=== PATIENT | female | born 1955 | race Caucasian/White ===

== ENCOUNTER 2016-12-30 07:43 | Emergency (ER) | payer OTHER ==
[~2016-12-30] VITALS: Ht 157.5 cm; Wt 55.0 kg
[~2016-12-30 07:43] MED LIST: CIPR500T4 PO; DOCU-144 PO; HYDR-902 PO; HYDR-906 PO; IBUP-1542 PO; METR500T PO; ONDA4TAB8 PO
[2016-12-30 07:45] VITALS: Ht 157.5 cm; Wt 55.0 kg
[2016-12-30] MEDS ORDERED: ONDANSETRON 4 MG INJ IV STA (07:53)
[2016-12-30] MEDS ORDERED: SOD CHLORIDE 0.9% 500 ML IV STA (07:53)
[2016-12-30] MEDS ORDERED: morphine 2 MG INJ IV STA (07:53)
[2016-12-30 08:11] LABS: ADD SCAN DIFF NO
[2016-12-30 08:14] LABS: BASOPHILS % 0.3 % (0.0-2.0); EOSINOPHILS # 0.1 10^3/ul (0.0-0.5); EOSINOPHILS % 2.1 % (0.0-7.0); HEMATOCRIT 39.4 % (37.0-47.0); HEMOGLOBIN 13.4 g/dl (12.0-16.0); LYMPHOCYTES # 1.7 10^3/ul (0.8-2.9); LYMPHOCYTES % 50.9 % (15.0-51.0); MEAN CORPUSCULAR HEMOGLOBIN 29.5 pg (29.0-33.0); MEAN CORPUSCULAR VOLUME 86.6 fl (82.0-101.0); MEAN PLATELET VOLUME 12.6 fl (7.4-10.4); MONOCYTE # 0.4 10^3/ul (0.3-0.9); MONOCYTES % 13.1 % (0.0-11.0); NEUTROPHIL # 1.1 10^3/ul (1.6-7.5); NEUTROPHILS % 33.6 % (39.0-77.0); PLATELET COUNT 152 10^3/UL (140-415); RED BLOOD COUNT 4.55 10^6/ul (4.20-5.40); RED CELL DISTRIBUTION WIDTH 13.2 % (11.5-14.5); WHITE BLOOD COUNT 3.4 10^3/ul (4.8-10.8)
[2016-12-30 08:29] LABS: POTASSIUM 3.4 mmol/L (3.5-5.1)
[2016-12-30 08:31] LABS: ALBUMIN/GLOBULIN RATIO 1.17; BILIRUBIN,INDIRECT 0.7 mg/dl (0-1.1); BILIRUBIN,TOTAL 0.7 mg/dl (0.2-1.3); CREATININE 0.8 mg/dl (0.44-1.00); TOTAL PROTEIN 7.4 g/dl (6.1-8.1)
[2016-12-30 08:32] LABS: CALCIUM 8.6 mg/dl (8.4-10.2)
--- NOTE | 2016-12-30 08:47 | RADRPT ---
PROCEDURE: XR Abdomen 1 vw. CLINICAL INDICATION: Abdominal pain TECHNIQUE: AP view of the abdomen . COMPARISON: None. FINDINGS: No organomegaly is identified. There is a fecal filled colon. The bowel gas pattern is unremarkabl e. There is no evidence of bowel obstruction. No free air is identified. No calculi are identified . The axial skeleton is unremarkable. IMPRESSION: Fecal filled colon. RPTAT: [facility] .Des Gongora MD, MD Date Time Electronically viewed and signed by .Des Gongora MD, on 12/30/2016 08:46 .B/
[2016-12-30] MEDS ORDERED: ONDA4TAB14 PO (09:09)
[2016-12-30] MEDS ORDERED: DOCU-144 PO (09:09)
[2016-12-30] MEDS ORDERED: FLEETPED PR (09:09)
--- NOTE | 2016-12-30 09:12 | ERD ---
ER Documentation Chief Complaint Date/Time DATE: 12/30/16 TIME: 09:10 Chief Complaint ap with nausea since thursday,flatulance HPI This is a 61-year-old female with abdominal pain with nausea since Thursday she does complain of flatulence. She says had decreased problems of the 3 days. Abdominal pain is colicky nature diffuse in location with no exacerbating or alleviating factors. No fevers no chills. No sick contacts. No other current complaints. ROS All systems reviewed and are negative except as per history of present illness. Medications Home Meds Active Scripts Ondansetron (Ondansetron Odt) 4 Mg Tab.rapdis, 4 MG PO Q6H Y for NAUSEA AND/OR VOMITING, #10 TAB Prov:GINO CAZARES. 12/30/16 Sod Phosphate/Sod Biphosphate* (Fleet* Enema Pediatric) 66.6 Ml Soln, 66.6 ML NC DAILY Y for CONSTIPATION, #1 ENEMA Prov:GINO CAZARES 12/30/16 Docusate Sodium* (Colace*) 100 Mg Capsule, 100 MG PO TID, #30 CAP Prov:GINO CAZARES. 12/30/16 Docusate Sodium* (Colace*) 100 Mg Capsule, 100 MG PO TID, #30 CAP Prov:GARY MEIER MD 06/08/16 Hydrocodone/Acetaminophen (Rush 10-325 Tablet) 1 Each Tablet, 1 TAB PO Q6H Y for PAIN, #12 TAB Prov:GARY MEIER MD 06/08/16 Metronidazole* (Flagyl*) 500 Mg Tablet, 500 MG PO TID for 7 Days, TAB Prov:GARY MEIER MD 06/08/16 Ciprofloxacin Hcl* (Ciprofloxacin Hcl*) 500 Mg Tablet, 500 MG PO BID for 7 Days , TAB Prov:GARY MEIER MD 06/08/16 Ondansetron Hcl* (Zofran*) 4 Mg Tablet, 4 MG PO Q8H Y for NAUSEA AND/OR VOMITING , #30 TAB Prov:CHAD HOOKER MD 03/21/16 Ibuprofen* (Motrin*) 600 Mg Tab, 600 MG PO Q8 for PAIN AND/OR INFLAMMATION, #30 TAB Prov:CHAD HOOKER MD 03/21/16 Ciprofloxacin Hcl* (Ciprofloxacin Hcl*) 500 Mg Tablet, 500 MG PO BID for 10 Days , TAB Prov:BARBER GRANADOSUrmila PEREZ 03/19/16 Hydrocodone/Acetaminophen (Rush 5-325 Tablet) 1 Each Tablet, 1 EACH PO Q6, #10 TAB Prov:BARBER GRANADOS FREDERICKDarwin 03/19/16 Allergies Allergies: Coded Allergies: Penicillins (Verified Allergy, Mild, 06/08/16) unknown reaction PMhx/Soc History of Surgery: No Anesthesia Reaction: No Hx Neurological Disorder: No Hx Respiratory Disorders: No (PNUEMONIA OR TB ??) Hx Cardiac Disorders: No Hx Psychiatric Problems: No Hx Miscellaneous Medical Probl: Yes (kidney stone) Hx Alcohol Use: No Hx Substance Use: No Hx Tobacco Use: No Smoking Status: Never smoker Physical Exam Vitals Vital Signs Date Time Temp Pulse Resp B/P Pulse Ox O2 Delivery O2 Flow Rate FiO2 12/30/16 07:45 97.7 60 18 139/61 99 Physical Exam Const: [] Head: Atraumatic Eyes: Normal Conjunctiva ENT: Normal External Ears, Nose and Mouth. Neck: Full range of motion..~ No meningismus. Resp: Clear to auscultation bilaterally Cardio: Regular rate and rhythm, no murmurs Abd: Soft, non tender, non distended. Normal bowel sounds Skin: No petechiae or rashes Back: No midline or flank tenderness Ext: No cyanosis, or edema Neur: Awake and alert Psych: Normal Mood and Affect Result Diagram: 12/30/16 0800 12/30/16 0800 Results 24 hrs Laboratory Tests Test 12/30/16 08:00 White Blood Count 3.410^3/ul Red Blood Count 4.5510^6/ul Hemoglobin 13.4g/dl Hematocrit 39.4% Mean Corpuscular Volume 86.6fl Mean Corpuscular Hemoglobin 29.5pg Mean Corpuscular Hemoglobin Concent 34.0g/dl Red Cell Distribution Width 13.2% Platelet Count 78994^3/UL Mean Platelet Volume 12.6fl Neutrophils % 33.6% Lymphocytes % 50.9% Monocytes % 13.1% Eosinophils % 2.1% Basophils % 0.3% Nucleated Red Blood Cells % 0.0/100WBC Neutrophils # 1.110^3/ul Lymphocytes # 1.710^3/ul Monocytes # 0.410^3/ul Eosinophils # 0.110^3/ul Basophils # 0.010^3/ul Nucleated Red Blood Cells # 0.010^3/ul Sodium Level 144mmol/L Potassium Level 3.4mmol/L Chloride Level 110mmol/L Carbon Dioxide Level 30mmol/L Anion Gap 7 Blood Urea Nitrogen 11mg/dl Creatinine 0.80mg/dl Glucose Level 95mg/dl Calcium Level 8.6mg/dl Total Bilirubin 0.7mg/dl Direct Bilirubin 0.00mg/dl Indirect Bilirubin 0.7mg/dl Aspartate Amino Transf (AST/SGOT) 35IU/L Alanine Aminotransferase (ALT/SGPT) 42IU/L Alkaline Phosphatase 94IU/L Total Protein 7.4g/dl Albumin 4.0g/dl Globulin 3.40g/dl Albumin/Globulin Ratio 1.17 Lipase 133U/L Current Medications Medications (Trade) Dose Ordered Sig/Vannessa Route PRN Reason Start Time Stop Time Status Last Admin Dose Admin Sodium Chloride (NS) 500 ml @ 500 mls/hr Q1H STAT IV 12/30/16 07:53 12/30/16 08:52 DC 12/30/16 08:24 Morphine Sulfate (morphine) 2 mg ONCE STAT IV 12/30/16 07:53 12/30/16 07:54 DC 12/30/16 08:24 Ondansetron HCl (Zofran Inj) 4 mg ONCE STAT IV 12/30/16 07:53 12/30/16 07:54 DC 12/30/16 08:24 Procedures/MDM X-ray Abdomen 1V Interpreted by me: Free Air: [None] Bowel Gas: [Nonspecific] Soft Tissue: [Normal] Impression: Constipation Medical decision-making: Very pleasant 61 a female abdominal pain and flatulence is her main complaint. Evidence of constipation on exam. At this point is clinically stable. Just patient will be discharged home with Colace, Fleet enema, Zofran. Follow-up in 8 hours for serial abdominal exams. No evidence of surgical abdomen. Well-appearing. Tolerating p.o. Departure Diagnosis: Primary Impression: Constipation Constipation type: slow transit constipation Qualified Code: K59.01 - Slow transit constipation Additional Impression: Abdominal pain Abdominal location: generalized Qualified Code: R10.84 - Generalized abdominal pain Condition: Stable Patient Instructions: Constipation (Adult) GINO CAZARES December 30, 2016 09:12
[2016-12-30 09:20] VITALS: BP 117/61; PULSE 47; RESP 18
[2016-12-30 09:36] LABS: ADD UMIC YES; URINE BILIRUBIN (Dip) NEGATIVE (NEGATIVE); URINE BLOOD (Dip) NEGATIVE (NEGATIVE); URINE COLOR LT. YELLOW (YELLOW); URINE GLUCOSE (Dip) NEGATIVE (NEGATIVE); URINE KETONES (Dip) NEGATIVE (NEGATIVE); URINE LEUKOCYTE ESTERASE (Dip) TRACE (NEGATIVE); URINE NITRITE (Dip) NEGATIVE (NEGATIVE); URINE TOTAL PROTEIN (Dip) NEGATIVE (NEGATIVE); URINE UROBILINOGEN (Dip) 0.2 E.U./dL (0.1-1.0)
[2016-12-30 10:08] LABS: BACTERIA,URINE RARE; URINE RBCS 0-2 /HPF (0)
== END 2016-12-30 09:29 | disposition home or self-care (01) ==
LOC: E/R 07:43
DX: K59.01 Slow transit constipation (principal); R11.0 Nausea; R40.2142 Coma scale, eyes open, spontaneous, at arrival to emergency department; R40.2252 Coma scale, best verbal response, oriented, at arrival to emergency department
CPT/HCPCS: 36415; 74000; 80053; 81001; 83690; 85025; 96374; 96375; J2270; J2405; J7040; Z7502; Z7610

== ENCOUNTER 2017-08-17 07:55 | Emergency (ER) | END 2017-08-17 11:24 | disposition home or self-care (01) ==

== ENCOUNTER 2017-09-09 08:25 | Day surgery (SDC) | END 2017-09-09 10:50 | disposition home or self-care (01) ==